=== PATIENT | female | born 1940 | race Caucasian/White ===

== ENCOUNTER 2018-12-24 15:46 | Emergency (ER) | payer MEDICARE ==
--- NOTE | 2018-12-24 16:24 | ER Document Report ---
ED Medical Screen (RME) - General Chief Complaint: Abnormal Lab Results Stated Complaint: ABNORMAL LABS Time Seen by Provider: 12/24/18 16:20 Mode of Arrival: Wheelchair Information source: Patient, Relative - relative states she was called from pt's prior hospital to say that urine and BC's has come back positive and pt. requires admission. Pt. with Alzheimers dz and is without c/o TRAVEL OUTSIDE OF THE [place] IN LAST 30 DAYS: No - Related Data Allergies/Adverse Reactions: No Known Allergies Allergy (Unverified 12/24/18 15:49) Physical Exam - Vital signs Vitals: Temp Pulse Resp BP Pulse Ox 99.1 F 97 17 139/62 H 97 12/24/18 15:50 12/24/18 15:50 12/24/18 15:50 12/24/18 15:50 12/24/18 15:50 Course - Vital Signs Vital signs: Temp Pulse Resp BP Pulse Ox 99.1 F 97 17 139/62 H 97 12/24/18 15:50 12/24/18 15:50 12/24/18 15:50 12/24/18 15:50 12/24/18 15:50
[2018-12-24 17:19] LABS: ABSOLUTE BASOPHILS # (AUTO) 0.1 10^3/uL (0.0-0.2); ABSOLUTE EOSINOPHILS # (AUTO) 0.2 10^3/uL (0.0-0.6); ABSOLUTE LYMPHOCYTES (AUTO) 1.8 10^3/uL (0.5-4.7); ABSOLUTE MONOCYTES (AUTO) 0.6 10^3/uL (0.1-1.4); ABSOLUTE NEUT (AUTO) 4.1 10^3/uL (1.7-8.2); EOSINOPHILS % (AUTO) 2.2 % (0-6); HEMOGLOBIN 13.1 g/dL (12.0-15.5); LYMPHOCYTES % (AUTO) 26.9 % (13-45); MEAN CORPUSCULAR HEMOGLOBIN 31.9 pg (27.0-33.4); MEAN CORPUSCULAR HGB CONC 34.6 g/dL (32.0-36.0); MEAN CORPUSCULAR VOLUME 92 fl (80-97); MONOCYTES % (AUTO) 9.2 % (3-13); PLATELET COUNT 431 10^3/uL (150-450); RED BLOOD COUNT 4.12 10^6/uL (3.72-5.28); RED CELL DISTRIBUTION WIDTH 13.6 % (11.5-14.0); SEGMENTED NEUTROPHILS % (AUTO) 60.7 % (42-78); TOTAL CELLS COUNTED % (AUTO) 100 %; WHITE BLOOD COUNT 6.8 10^3/uL (4.0-10.5)
[2018-12-24 17:35] LABS: ALANINE AMINOTRANSFERASE 16 U/L (9-52); ALBUMIN 4.3 g/dL (3.5-5.0); ALKALINE PHOSPHATASE 95 U/L (38-126); ANION GAP 9 (5-19); ASPARTATE AMINO TRANSFERASE 23 U/L (14-36); BILIRUBIN,DIRECT 0.2 mg/dL (0.0-0.4); BILIRUBIN,TOTAL 0.3 mg/dL (0.2-1.3); BLOOD UREA NITROGEN 15 mg/dL (7-20); CALCIUM 9.8 mg/dL (8.4-10.2); CARBON DIOXIDE 30 mmol/L (22-30); CHLORIDE 106 mmol/L (98-107); GLUCOSE 84 mg/dL (75-110); POTASSIUM 4.5 mmol/L (3.6-5.0); SODIUM 144.5 mmol/L (137-145); TOTAL PROTEIN 7.7 g/dL (6.3-8.2)
[2018-12-24 18:27] LABS: APPEARANCE,URINE SLIGHTLY-CLOUDY; BILIRUBIN,URINE NEGATIVE (NEGATIVE); COLOR,URINE YELLOW; GLUCOSE, URINE 50 mg/dL (NEGATIVE); KETONES,URINE TRACE mg/dL (NEGATIVE); LEUKOCYTE ESTERASE,URINE SMALL (NEGATIVE); NITRITE,URINE NEGATIVE (NEGATIVE); PROTEIN,URINE NEGATIVE (NEGATIVE); URINE SPECIFIC GRAVITY 1.017; UROBILINOGEN,URINE NEGATIVE mg/dL (<2.0)
--- NOTE | 2018-12-24 19:08 | ER Document Report ---
ED General - General Chief Complaint: Abnormal Lab Results Stated Complaint: ABNORMAL LABS Time Seen by Provider: 12/24/18 16:20 Mode of Arrival: Wheelchair Information source: Emergency Med Personnel Notes: This is a 78-year-old female with a history of dementia and hospitalized for a recent UTI that was brought into the emergency room by family because she was called from an outside facility ([facility]: [phone]) and said she had a positive culture and needed to come in to be evaluated. Patient is currently on Cefdenir. Patient denies any discomfort at the time of my exam. She is comfortable lying in the stretcher. TRAVEL OUTSIDE OF THE [place] IN LAST 30 DAYS: No - HPI Onset: Just prior to arrival Onset/Duration: Sudden Quality of pain: No pain Severity: None Pain Level: Denies Associated symptoms: denies: Chills, Fever, Shortness of breath Exacerbated by: Denies Relieved by: Denies Similar symptoms previously: No Recently seen / treated by doctor: Yes - Related Data Allergies/Adverse Reactions: No Known Allergies Allergy (Unverified 12/24/18 15:49) Past Medical History - General Information source: Patient, Relative - relative states she was called from pt's prior hospital to say that urine and BC's has come back positive and pt. requires admission. Pt. with Alzheimers dz and is without c/o - Social History Smoking Status: Unknown if Ever Smoked Cigarette use (# per day): No Chew tobacco use (# tins/day): No Frequency of alcohol use: None Drug Abuse: None Lives with: Family Family History: None Patient has suicidal ideation: No Patient has homicidal ideation: No - Past Medical History Cardiac Medical History: Reports: None Pulmonary Medical History: Reports: None Neurological Medical History: Reports: None Endocrine Medical History: Reports: None Renal/ Medical History: Denies: Hx Peritoneal Dialysis Malignancy Medical History: Reports: None GI Medical History: Reports: None Musculoskeletal Medical History: Reports None Skin Medical History: Reports None Psychiatric Medical History: Reports: Hx Dementia Traumatic Medical History: Reports: None Infectious Medical History: Reports: Other - Hospitalized with a recent UTI Surgical Hx: Negative Review of Systems - Review of Systems Constitutional: denies: Chills, Fever EENT: No symptoms reported Cardiovascular: No symptoms reported Respiratory: No symptoms reported. denies: Cough, Short of breath Gastrointestinal: denies: Abdomen distended, Abdominal pain, Diarrhea Genitourinary: See HPI. denies: Burning, Dysuria, Discharge, Frequency Female Genitourinary: No symptoms reported Musculoskeletal: No symptoms reported Skin: No symptoms reported Hematologic/Lymphatic: No symptoms reported Neurological/Psychological: No symptoms reported Physical Exam - Vital signs Vitals: Temp Pulse Resp BP Pulse Ox 99.1 F 97 17 139/62 H 97 12/24/18 15:50 12/24/18 15:50 12/24/18 15:50 12/24/18 15:50 12/24/18 15:50 Notes: Physical exam: GENERAL: Patient is alert, she does have some baseline dementia which is reportedly at her baseline. She is in no distress. She is answering questions and is cooperative for the exam and lying comfortably in the bed. Her te mperature is 98.6 rectally. HEAD: Atraumatic, normocephalic. EYES: Pupils equal round and reactive to light, extraocular movements intact, sclera anicteric, conjunctiva are normal. ENT: TMs normal, nares patent, oropharynx clear without exudates. Moist mucous membranes. NECK: Normal range of motion, supple without obvious mass or JVD. LUNGS: Breath sounds clear to auscultation bilaterally and equal. No wheezes rales or rhonchi. HEART: Regular rate and rhythm without murmurs, rubs or gallops. ABDOMEN: Soft, normoactive bowel sounds. No tenderness to palpation. No guarding, no rebound. No masses appreciated. EXTREMITIES: Normal range of motion, no pitting or edema. No clubbing or cyanosis. NEUROLOGICAL: Cranial nerves II through XII grossly intact. Normal speech, moving all extremities. PSYCH: Normal mood, normal affect. SKIN: Warm, Dry, normal turgor, no rashes or lesions noted. Course - Re-evaluation Re-evalutation: 12/24/18 22:05 Note: I was able to get a hold of Bryant at [facility] and he was able to get me the results of the urine culture which was positive for E. coli sensitive to Augmentin. Patient was started on oral Augmentin in the emergency room and I will send her home with a prescription. She is afebrile and in no distress. She appears well. There is no evidence of sepsis or bacteremia at this time. Did send cultures. - Vital Signs Vital signs: Temp Pulse Resp BP Pulse Ox 98.9 F 97 17 126/73 H 95 12/24/18 18:51 12/24/18 15:50 12/24/18 21:01 12/24/18 21:01 12/24/18 21:01 - Laboratory Result Diagrams: 12/24/18 16:53 12/24/18 16:53 Laboratory results interpreted by me: 12/24/18 12/24/18 16:53 18:00 Est GFR (Non-Af Amer) 56 L Urine Glucose (UA) 50 H Urine Ketones TRACE H Ur Leukocyte Esterase SMALL H Discharge - Discharge Clinical Impression: Weakness, UTI Condition: Stable Disposition: HOME, SELF-CARE Additional Instructions: Your blood work looked quite good today. We did repeat the cultures of the blood and urine. We were able to get a hold of Bryant at [facility] and they were able to give us the results of the cultures which showed that the bacteria was sensitive to Augmentin. Stop taking the other antibiotic (cefdinir) We started Ms. Sandhu on Augmentin in the emergency room and the plan will be to take the medicine as prescribed. Start tomorrow. Return to the ER for any fever, vomiting or any concerns that Ms. Fox is not acting herself. Recommend following up with primary care doctor when possible. Prescriptions: Amox Tr/Potassium Clavulanate [Augmentin 875-125 Tablet] 1 tab PO BID #14 tablet
--- NOTE | 2018-12-24 19:43 | RADIOLOGY REPORT (SQ) ---
EXAM DESCRIPTION: CHEST SINGLE VIEW COMPLETED DATE/TIME: 12/24/2018 7:27 pm REASON FOR STUDY: cough COMPARISON: None. EXAM PARAMETERS: NUMBER OF VIEWS: One view. TECHNIQUE: Single frontal radiographic view of the chest acquired. RADIATION DOSE: NA LIMITATIONS: None. FINDINGS: LUNGS AND PLEURA: No opacities, masses or pneumothorax. No pleural effusion. MEDIASTINUM AND HILAR STRUCTURES: No masses. Contour normal. HEART AND VASCULAR STRUCTURES: Heart normal in size. Normal vasculature. BONES: No acute findings. HARDWARE: None in the chest. OTHER: No other significant finding. IMPRESSION: NO ACUTE RADIOGRAPHIC FINDING IN THE CHEST. TECHNICAL DOCUMENTATION: JOB ID: [id number] [place]-72 2010 [employer] All Rights Reserved Reading location - IP/workstation name: [email or web address]
[2018-12-24] MEDS ORDERED: AMOXICILLIN TR/POT CLAVULANATE 500-125 MG TAB PO ONE (21:57)
[2018-12-24 22:43] VITALS: BP 133/72
== END 2018-12-24 22:40 | disposition home or self-care (01) ==
LOC: ER 15:46
DX: N39.0 Urinary tract infection, site not specified (principal); B96.20 Unspecified Escherichia coli [E. coli] as the cause of diseases classified elsewhere; R53.1 Weakness; G30.9 Alzheimer's disease, unspecified; F02.80 Dementia in other diseases classified elsewhere, unspecified severity, without behavioral disturbance, psychotic disturbance, mood disturbance, and anxiety
CPT/HCPCS: 99284; 36415; 87040; 87086; 83605; 85025; 87088; 80053; 81001; 87186; 71045; A9270

== ENCOUNTER 2019-02-07 00:28 | Emergency (ER) | payer MEDICARE ==
--- NOTE | 2019-02-07 00:57 | RADIOLOGY REPORT (SQ) ---
EXAM DESCRIPTION: XR HIP 2 OR MORE VIEWS COMPLETED DATE/TME: 02/07/2019 00:29 CLINICAL HISTORY: 78 years, Female, deformity COMPARISON: None. NUMBER OF VIEWS: 2 TECHNIQUE: AP pelvis and single view right hip LIMITATIONS: None. FINDINGS: Osteopenia. Negative for acute fracture or dislocation. Mild degenerative change of the hips bilaterally. Vascular calcifications IMPRESSION: Osteopenia. No acute osseous abnormality. copyright 2010 [employer]- All Rights Reserved
--- NOTE | 2019-02-07 01:13 | ER Document Report ---
ED General - General Chief Complaint: Hip Pain Stated Complaint: HIP PAIN Time Seen by Provider: 02/07/19 00:32 Notes: Patient is a 78-year-old female with who presents via EMS due to concern for possible hip fracture. She has dementia and apparently fell yesterday. He told paramedics that she start having pain in her right hip and did not want to walk on it and therefore they brought to ER because a concern she had a hip fracture. She was immediately brought x-ray before she was even placed in a room while she was still not able to stretcher. X-ray of the right hip is negative. Patient tells me that most her pain is actually into her lower back between her hips. She cannot tell a whole lot about the fall. She tells me she lives by herself however I am not sure this is accurate based on her previous records. I think she actually lives with her family. She does have known history of dementia. She denies headache. No neck pain. No chest pain. No abdominal pain. She denies recent fever or infection. No other complaints at this time. Patient given 75mcg of fentanyl by EMS. TRAVEL OUTSIDE OF THE [place] IN LAST 30 DAYS: No - Related Data Allergies/Adverse Reactions: No Known Allergies Allergy (Unverified 12/24/18 15:49) Past Medical History - Social History Smoking Status: Unknown if Ever Smoked Frequency of alcohol use: None Drug Abuse: None Family History: None Patient has suicidal ideation: No Patient has homicidal ideation: No Renal/ Medical History: Denies: Hx Peritoneal Dialysis Psychiatric Medical History: Reports: Hx Dementia Review of Systems - Review of Systems Notes: My Normal Review Basic REVIEW OF SYSTEMS: CONSTITUTIONAL : Denies fever, chills, or sweats. Denies recent illness. EENT: Denies eye, ear, throat, or mouth pain or symptoms. Denies nasal or sinus congestion. CARDIOVASCULAR: Denies chest pain. RESPIRATORY: Denies cough, cold, or chest congestion. Denies shortness of breath, difficulty breathing, or wheezing. GASTROINTESTINAL: Denies abdominal pain. Denies nausea, vomiting, or diarrhea. GENITOURINARY: Denies difficulty urinating, painful urination, burning, frequency, or blood in urine. MUSCULOSKELETAL: Some lower back pain SKIN: Denies rash or skin lesions. NEUROLOGICAL: Denies altered mental status or loss of consciousness. Denies headache. Denies weakness or paralysis or loss of use of either side. Denies problems with gait or speech. Denies sensory or motor loss. ALL OTHER SYSTEMS REVIEWED AND NEGATIVE. Physical Exam - Vital signs Vitals: Temp Pulse Ox 98.4 F 99 02/07/19 00:29 02/07/19 00:29 - Notes Notes: General Appearance: Well nourished, alert, cooperative, no acute distress, no obvious discomfort. Vitals: reviewed, See vital signs table. Eyes: PERRL, EOMI, Conjuctiva clear Mouth: No decreasd moisture Neck: Supple, no neck tenderness, No thyromegaly Lungs: No wheezing, No rales, No rhonci, No accessory muscle use, good air ex change bilaterally. Heart: Normal rate, Regular rythm, No murmur, no rub Back: No step-offs or deformities of thoracic or lumbar spine. Some pain to palpation at the lumbosacral junction. Abdomen: Normal BS, soft, No rigidity, No abdominal tenderness, No guarding, no rebound, no abdominal masses, no organomegaly Extremities: strength 5/5 in all extremities, good pulses in all extremities, I am able to place the patient's right and left hip through full range of motion with flexion extension and internal/external rotation and not cause her pain. She has no pain with flexion-extension of either knee. There is no redness or swelling to the lower extremities. Pelvis is stable nontender palpation., no edema. Skin: warm, dry, appropriate color, no rash Neuro: speech clear, oriented x 2, normal affect, responds appropriately to most questions. Cranial nerves II through XII are intact. Distal sensation intact. Patient able to move all extremities on her own. No focal weakness. Course - Re-evaluation Re-evalutation: 02/07/19 05:53 On reevaluation patient is able to sit up in bed but has pain in doing so. She says she still does not feel like she can stand because of the pain into her lower back. CT scan was negative. She does not have any weakness or numbness into the lower extremities. There is no evidence of cord compression. She also has a little bit of urinary tract infection. Her cath urine specimen shows nitrites and 3+ bacteria. I was hoping to try to get her admitted being that she cannot walk or ambulate. I talked to the hospitalist, Dr. Spencer. I informed him that she does have a urinary tract infection and that she does have some back pain with inability to ambulate. I suspect back pain probably is related to the fall however it could potentially be related to a urinary tract infection as well. Dr. Spencer said she still does not meet criteria for admission and at this time refuses admission. I therefore called the patient's niece, Elizabeth. Her phone number is [phone]. Patient is currently staying with her. I informed her that basically we have 2 options at this time. Option one would be to keep the patient here in the ER and have discharge planning evaluate the patient and help come up with a plan of either home health or potentially assisted living type placement being that she cannot get up and move around on her own currently. I informed her the other option would be to go back home where she could help care for the patient in hopes that her back pain would improve over the next few days and her get back to normal. Elizabeth says at this time she would rather the patient not stay here. She would rather bring her home and try to care for at home. I informed her that if patient is not improving or worsening in any way than to bring her back to the ER immediately so we can reevaluate her. Elizabeth agrees with plan and patient will be discharged home. Dictation of this chart was performed using voice recognition software; therefore, there may be some unintended grammatical errors. - Vital Signs Vital signs: Temp Pulse Resp BP Pulse Ox 98.4 F 95 02/07/19 00:29 02/07/19 05:00 - Laboratory Result Diagrams: 02/07/19 01:24 02/07/19 01:24 Laboratory results interpreted by me: 02/07/19 02/07/19 02/07/19 01:24 01:24 04:02 Hct 35.3 L RDW 14.1 H Seg Neutrophils % 78.1 H Lymphocytes % 12.1 L Potassium 3.4 L Urine Blood SMALL H Urine Nitrite POSITIVE H Ur Leukocyte Esterase MODERATE H Discharge - Discharge Clinical Impression: Low back pain Qualifiers: Chronicity: acute Back pain laterality: midline Sciatica presence: without sciatica Qualified Code(s): M54.5 - Low back pain UTI (urinary tract infection) Qualifiers: Urinary tract infection type: site unspecified Hematuria presence: without hematuria Qualified Code(s): N39.0 - Urinary tract infection, site not specified Condition: Good Disposition: HOME, SELF-CARE Additional Instructions: Ms. Sanchez has significant back pain that is causing her pain when she sits up. I prescribed a medicine called tramadol which will likely help with her pain. It may take a few days before she gets completely better and is able to get up and walk around on her own again. The tramadol can sometimes cause some drowsiness and some people. She does have a mild urinary tract infection. We gave her a dose of an antibiotic here. I prescribed antibiotic that she should take over the next few days. She should follow-up with her doctor on Wednesday for reevaluation. Please call their office this morning to make a close follow-up appointment. Please feel free to return to ER if Ms. Sanchez's condition is worsening in any way, new confusion, if she has fevers, or if you do have any further concerns. Prescriptions: Tramadol HCl [Ultram 50 mg Tablet] 50 mg PO Q6HP PRN #15 tablet PRN Reason: Cephalexin Monohydrate [Keflex 500 mg Capsule] 500 mg PO BID 7 Days capsule
[2019-02-07 01:41] LABS: ABSOLUTE EOSINOPHILS # (AUTO) 0.1 10^3/uL (0.0-0.6); ABSOLUTE LYMPHOCYTES (AUTO) 0.9 10^3/uL (0.5-4.7); ABSOLUTE MONOCYTES (AUTO) 0.6 10^3/uL (0.1-1.4); ABSOLUTE NEUT (AUTO) 5.9 10^3/uL (1.7-8.2); BASOPHILS % (AUTO) 0.4 % (0-2); EOSINOPHILS % (AUTO) 0.9 % (0-6); HEMATOCRIT 35.3 % (36.0-47.0); HEMOGLOBIN 12.1 g/dL (12.0-15.5); LYMPHOCYTES % (AUTO) 12.1 % (13-45); MEAN CORPUSCULAR HEMOGLOBIN 31.4 pg (27.0-33.4); MEAN CORPUSCULAR HGB CONC 34.2 g/dL (32.0-36.0); MEAN CORPUSCULAR VOLUME 92 fl (80-97); MONOCYTES % (AUTO) 8.5 % (3-13); PLATELET COUNT 238 10^3/uL (150-450); RED BLOOD COUNT 3.85 10^6/uL (3.72-5.28); RED CELL DISTRIBUTION WIDTH 14.1 % (11.5-14.0); SEGMENTED NEUTROPHILS % (AUTO) 78.1 % (42-78); TOTAL CELLS COUNTED % (AUTO) 100 %; WHITE BLOOD COUNT 7.6 10^3/uL (4.0-10.5)
[2019-02-07 01:59] LABS: ANION GAP 7 (5-19); BLOOD UREA NITROGEN 13 mg/dL (7-20); CARBON DIOXIDE 26 mmol/L (22-30); CHLORIDE 106 mmol/L (98-107); GLUCOSE 99 mg/dL (75-110); POTASSIUM 3.4 mmol/L (3.6-5.0); SODIUM 138.6 mmol/L (137-145)
--- NOTE | 2019-02-07 04:10 | RADIOLOGY REPORT (SQ) ---
EXAM DESCRIPTION: CT LUMBAR SPINE WITHOUT IV CONTRAST COMPLETED DATE/TME: 02/07/2019 01:05 CLINICAL HISTORY: 78 years, Female, FELL, C/O L-SPINE COMPARISON: None. TECHNIQUE: 410 Images stored on PACS. All CT scanners at this facility use dose modulation, iterative reconstruction, and/or weight based dosing when appropriate to reduce radiation dose to as low as reasonably achievable (ALARA). [facility]: Dose Right [facility]: CareDose [facility]: Dose Right [facility]: Teradose 4D [facility]: Pelotonics LIMITATIONS: None. FINDINGS: 5 lumbar type vertebral bodies. Moderate degree of motion artifact. Nondisplaced T12 compression fracture deformity with a vertically oriented fracture line through the vertebral body. Approximately 20-30% loss of height. No retropulsed fracture fragment. Vertebral body height is otherwise preserved. Minor anterolisthesis of L4 with respect to L5 likely secondary to advanced facet arthropathy at this level. Facet arthropathy with endplate degenerative changes throughout the lumbar spine. Rather extensive atheromatous changes. Limited evaluation of extraspinal anatomic structures also demonstrates nonobstructing renal calculi bilaterally. IMPRESSION: Nondisplaced T12 compression fracture deformity with approximately 20-30% loss of height. No retropulsed fracture fragment. Multilevel degenerative change. Minor anterolisthesis of L4 on L5 likely degenerative in nature. TECHNICAL DOCUMENTATION: Quality ID # [id number]: Final reports with documentation of one or more dose reduction techniques (e.g., Automated exposure control, adjustment of the mA and/or kV according to patient size, use of iterative reconstruction technique) copyright 2010 [employer]- All Rights Reserved
[2019-02-07 04:45] LABS: APPEARANCE,URINE SLIGHTLY-CLOUDY; BILIRUBIN,URINE NEGATIVE (NEGATIVE); COLOR,URINE YELLOW; GLUCOSE, URINE NEGATIVE (NEGATIVE); KETONES,URINE NEGATIVE (NEGATIVE); LEUKOCYTE ESTERASE,URINE MODERATE (NEGATIVE); NITRITE,URINE POSITIVE (NEGATIVE); PROTEIN,URINE NEGATIVE (NEGATIVE); URINE SPECIFIC GRAVITY 1.009; UROBILINOGEN,URINE NEGATIVE mg/dL (<2.0)
[2019-02-07] MEDS ORDERED: CEFTRIAXONE 1 GM/D5W RTU 1 GM/50 ML RTUPB IV ONE (04:58)
[2019-02-07] MEDS ORDERED: KETOROLAC TROMETHAMINE INJ/PF 30 MG/1 ML SDV IV ONE (05:07)
[2019-02-07] MEDS ORDERED: TRAMADOL HCL 50 MG TABLET PO ONE (05:10)
[2019-02-07 09:13] VITALS: BP 152/67
== END 2019-02-07 09:13 | disposition home or self-care (01) ==
LOC: ER 00:28
DX: M54.5 Low back pain (principal); M25.551 Pain in right hip; W19.XXXA Unspecified fall, initial encounter; N39.0 Urinary tract infection, site not specified; R26.2 Difficulty in walking, not elsewhere classified; Z60.2 Problems related to living alone
CPT/HCPCS: 99284; 51701; 96365; 36415; 87086; 85025; 87088; 80048; 81001; 87186; 73502; 72131; A9270; J0696